=== PATIENT | male | born 2000 | race Caucasian/White ===

== ENCOUNTER 2023-06-19 13:11 | Inpatient (IN) | payer MEDICAID ==
[~2023-06-19] VITALS: Ht 182.9 cm; Wt 148.6 kg
[2023-06-19 16:45] LABS: BASOPHILS # (AUTO) 0.1 X10'3 (0-0.2); BASOPHILS % (AUTO) 0.4 % (0-1); EOSINOPHILS # (AUTO) 0.3 X10'3 (0-0.9); EOSINOPHILS % (AUTO) 2.7 % (0-6); HEMATOCRIT 44.4 % (42.0-52.0); HEMOGLOBIN 14.8 g/dl (14.0-17.9); LYMPHOCYTES # (AUTO) 2.3 X10'3 (1.1-4.8); LYMPHOCYTES % (AUTO) 18.4 % (21-51); MEAN CORPUSCULAR HEMOGLOBIN 28.4 PG (27.0-31.0); MEAN CORPUSCULAR HGB CONC 33.3 g/dL (33.0-36.5); MEAN CORPUSCULAR VOLUME 85.3 FL (78-98); MONOCYTES % (AUTO) 7.8 % (2-12); NEUTROPHILS % (AUTO) 70.7 % (42-75); PLATELET COUNT 364 X10'3 (140-440); RED CELL DISTRIBUTION WIDTH 13.1 % (11.5-14.5); WHITE BLOOD COUNT 12.8 X10'3 (4.5-11.0)
[2023-06-19 16:58] LABS: ALANINE AMINOTRANSFERASE 90 U/L (12-78); ALBUMIN 3.9 G/DL (3.4-5.0); ALBUMIN/GLOBULIN RATIO 0.9 (1.1-1.5); ALKALINE PHOSPHATASE 65 IU/L (46-116); ANION GAP 8 (8-16); ASPARTATE AMINO TRANSFERASE 34 U/L (10-37); BILIRUBIN,TOTAL 0.6 MG/DL (0.1-1.0); BLOOD UREA NITROGEN 9 MG/DL (7-18); BUN/CREATININE RATIO 8.7 (10.0-20.0); CHLORIDE 101 MMOL/L (99-107); CREATININE 1.04 MG/DL (0.60-1.10); GLUCOSE 90 MG/DL (70-104); LIPASE < 50 U/L (73-393); POTASSIUM 3.8 MMOL/L (3.5-5.1); SODIUM 137 MMOL/L (135-145); TOTAL CARBON DIOXIDE 27.9 MMOL/L (24-32); TOTAL PROTEIN 8.3 G/DL (6.4-8.2); eCRCL 123 ML/MIN; eGFR 90 ML/MIN
[2023-06-19 17:03] LABS: CALCIUM 10.1 MG/DL (8.5-10.1)
[2023-06-19] MEDS ORDERED: iohexol 300mg/ml 100ml inj. ONE (17:21)
[2023-06-19] MEDS ORDERED: normal saline 1000ML IV soln IV ONE (19:25)
[2023-06-19] MEDS ORDERED: piperacillin/tazo 3.375gm/50ml 50 ML IV ONE (19:25)
[2023-06-19] MEDS ORDERED: temazepam 15mg capsule PO PRN (21:00)
[2023-06-19] MEDS ORDERED: bisacodyl 10mg suppository rectal RC PRN (22:20)
[2023-06-19] MEDS ORDERED: acetaminophen 650mg rectal suppository RC PRN (22:20)
[2023-06-19] MEDS ORDERED: morphine 2 MG/ML inj. syringe IV PRN ×2 (22:20)
[2023-06-19] MEDS ORDERED: diphenhydrAMINE 50 mg/ml inj IV PRN (22:20)
[2023-06-19] MEDS ORDERED: metoclopramide 5 mg/ml inj IV PRN (22:20)
[2023-06-19] MEDS ORDERED: ondansetron 4mg rapidly disintigrating tab PO PRN (22:20)
[2023-06-19] MEDS ORDERED: acetaminophen 325mg tablet PO PRN ×2 (22:20)
[2023-06-19] MEDS ORDERED: magnesium hydroxide 30ml (MOM) UD suspension PO PRN (22:20)
[2023-06-19] MEDS ORDERED: HYDROcodone/acetaminophen 5mg/325mg tablet PO PRN (22:20)
[2023-06-19] MEDS ORDERED: diphenhydrAMINE 25mg capsule PO PRN (22:20)
[2023-06-19] MEDS ORDERED: mag hydrox/Alum hydrox/simeth 30ml oral suspension PO PRN (22:20)
[2023-06-19 23:20] VITALS: BP 137/80; PULSE 93; RESP 15; TEMP 99.7; O2SAT 96
[2023-06-19 23:41] LABS: HEMOGLOBIN A1C 5.7 % (4.5-6.2)
[2023-06-19 23:48] LABS: CREATINE KINASE 151 U/L (39-308); LIPASE 56 U/L (73-393); MAGNESIUM 1.8 MG/DL (1.5-2.4); PHOSPHORUS 3.9 MG/DL (2.3-4.5); PRO BRAIN NATRIURETIC PEPTIDE 38 PG/ML (0-125)
[2023-06-20] MEDS: piperacillin/tazo 4.5gm/100ml 100 ML IV SCH ×3 (00:27→16:27)
[2023-06-20 00:33] LABS: BILIRUBIN,URINE NEGATIVE (Neg); CLARITY,URINE CLEAR (Clear); COLOR,URINE YELLOW (Yellow); GLUCOSE, URINE NEGATIVE (Neg); KETONES,URINE NEGATIVE (Neg); LEUKOCYTE ESTERASE ,URINE NEGATIVE (Neg); NITRITES, URINE NEGATIVE (Neg); OCCULT BLOOD,URINE NEGATIVE (Neg); PH,URINE 5.5 (4.8-8.0); PROTEIN,URINE NEGATIVE (Neg); UROBILINOGEN,URINE 0.2 E.U/dL (0.2-1.0)
[2023-06-20] MEDS: normal saline 1000ml 1,000 ML IV SCH ×4 (00:34→16:31)
[2023-06-20] MEDS: heparin, porcine 5000 units/ml vial SQ SCH ×3 (00:35→16:27)
[2023-06-20 00:44] LABS: UA COLLECTION TYPE URINAL
[2023-06-20 00:50] LABS: URINE AMPHETAMINE SCREEN NEGATIVE (Neg); URINE BARBITUATE SCREEN NEGATIVE (Neg); URINE BENZODIAZEPINES SCREEN NEGATIVE (Neg); URINE CANNABINOID SCREEN NEGATIVE (Neg); URINE COCAINE SCREEN NEGATIVE (Neg); URINE METHADONE SCREEN NEGATIVE (Neg); URINE OPIATE SCREEN NEGATIVE (Neg); URINE PHENCYCLIDINE SCREEN NEGATIVE (Neg)
[2023-06-20 00:51] LABS: DRUG INTERP N
[2023-06-20 02:44] VITALS: BP 153/91; PULSE 85; RESP 16; TEMP 98.2; O2SAT 97
--- NOTE | 2023-06-20 06:31 | NUR ---
Problems reprioritized. Patient report given, questions answered & plan of care reviewed with JEAN-PAUL KHANNA.
--- NOTE | 2023-06-20 06:45 | NUR ---
Patient in room PCU 3018A. I have received report from JEY MOORE and had the opportunity to ask questions and assume patient care.
[2023-06-20 06:52] LABS: BASOPHILS % (AUTO) 0.3 % (0-1); EOSINOPHILS # (AUTO) 0.3 X10'3 (0-0.9); EOSINOPHILS % (AUTO) 2.3 % (0-6); HEMOGLOBIN 13.1 g/dl (14.0-17.9); MEAN CORPUSCULAR HEMOGLOBIN 28.6 PG (27.0-31.0); MEAN CORPUSCULAR HGB CONC 33.7 g/dL (33.0-36.5); MEAN CORPUSCULAR VOLUME 84.9 FL (78-98); MEAN PLATELET VOLUME 7.9 FL (7.4-10.4); MONOCYTES % (AUTO) 8.6 % (2-12); NEUTROPHILS # (AUTO) 8.6 X10'3 (1.8-7.7); NEUTROPHILS % (AUTO) 71.8 % (42-75); PLATELET COUNT 327 X10'3 (140-440); RED BLOOD COUNT 4.59 X10'6 (4.70-6.10); RED CELL DISTRIBUTION WIDTH 13.2 % (11.5-14.5); WHITE BLOOD COUNT 11.9 X10'3 (4.5-11.0)
[2023-06-20 07:00] VITALS: BP 124/78; PULSE 88; RESP 16; TEMP 99.1; O2SAT 97
[2023-06-20 07:14] LABS: ALANINE AMINOTRANSFERASE 72 U/L (12-78); ALBUMIN 3.3 G/DL (3.4-5.0); ALBUMIN/GLOBULIN RATIO 0.9 (1.1-1.5); ALKALINE PHOSPHATASE 58 IU/L (46-116); ANION GAP 10 (8-16); ASPARTATE AMINO TRANSFERASE 26 U/L (10-37); BILIRUBIN,TOTAL 0.7 MG/DL (0.1-1.0); BLOOD UREA NITROGEN 9 MG/DL (7-18); BUN/CREATININE RATIO 8.4 (10.0-20.0); CALCIUM 8.8 MG/DL (8.5-10.1); CHLORIDE 104 MMOL/L (99-107); CHOLESTEROL 167 MG/DL (0-200); CREATININE 1.07 MG/DL (0.60-1.10); GLUCOSE 93 MG/DL (70-104); HDL CHOLESTEROL 24 MG/DL (35-60); LDL CHOLESTEROL 117 MG/DL (50-100); POTASSIUM 3.7 MMOL/L (3.5-5.1); SODIUM 138 MMOL/L (135-145); TRIGLYCERIDES 125 MG/DL (20-135); eCRCL 120 ML/MIN; eGFR 87 ML/MIN
[2023-06-20] MEDS: pantoprazole 40mg Tablet.DR PO SCH (09:33)
[2023-06-20] MEDS: docusate sod 100mg capsule PO SCH ×2 (09:33→19:56)
[2023-06-20 10:00] VITALS: BP 129/86; PULSE 92; RESP 13; TEMP 99.2; O2SAT 95
[2023-06-20 15:00] VITALS: BP 128/76; PULSE 89; RESP 13; TEMP 97; O2SAT 95
[2023-06-20 18:00] VITALS: BP 139/84; PULSE 99; RESP 16; TEMP 99.6; O2SAT 96
--- NOTE | 2023-06-20 18:30 | NUR ---
Problems reprioritized. Patient report given, questions answered & plan of care reviewed with JEY PARSONS.
--- NOTE | 2023-06-20 18:34 | NUR ---
Patient in room PCU 3018. I have received report from Rosa Maria KHANNA and had the opportunity to ask questions and assume patient care.
[2023-06-20] MEDS: HYDROcodone/acetaminophen 10/325mg tab PO PRN (19:57)
[2023-06-21] MEDS: normal saline 1000ml 1,000 ML IV SCH ×4 (00:28→21:24)
[2023-06-21] MEDS: piperacillin/tazo 4.5gm/100ml 100 ML IV SCH ×3 (00:30→16:26)
[2023-06-21] MEDS: heparin, porcine 5000 units/ml vial SQ SCH ×3 (00:33→17:39)
[2023-06-21 02:26] VITALS: BP 142/87; PULSE 102; RESP 16; TEMP 98; O2SAT 95
--- NOTE | 2023-06-21 06:25 | NUR ---
patient medicated x1 for pain. slept well overnight. report given to Rosa Maria KHANNA
--- NOTE | 2023-06-21 06:27 | NUR ---
Patient in room PCU 3018A. I have received report from JEY PARSONS and had the opportunity to ask questions and assume patient care.
[2023-06-21 06:37] LABS: BASOPHILS % (AUTO) 0.2 % (0-1); EOSINOPHILS # (AUTO) 0.3 X10'3 (0-0.9); EOSINOPHILS % (AUTO) 2.3 % (0-6); HEMATOCRIT 40.2 % (42.0-52.0); LYMPHOCYTES % (AUTO) 15.8 % (21-51); MEAN CORPUSCULAR HEMOGLOBIN 28.2 PG (27.0-31.0); MEAN CORPUSCULAR HGB CONC 32.4 g/dL (33.0-36.5); MEAN CORPUSCULAR VOLUME 87.2 FL (78-98); MEAN PLATELET VOLUME 7.6 FL (7.4-10.4); MONOCYTES # (AUTO) 1.1 X10'3 (0-0.9); MONOCYTES % (AUTO) 8.8 % (2-12); NEUTROPHILS # (AUTO) 9.2 X10'3 (1.8-7.7); NEUTROPHILS % (AUTO) 72.9 % (42-75); PLATELET COUNT 340 X10'3 (140-440); RED BLOOD COUNT 4.61 X10'6 (4.70-6.10); RED CELL DISTRIBUTION WIDTH 13.4 % (11.5-14.5); WHITE BLOOD COUNT 12.6 X10'3 (4.5-11.0)
[2023-06-21 07:00] VITALS: BP 139/88; PULSE 89; RESP 18; TEMP 98.5; O2SAT 95
[2023-06-21 07:02] LABS: ALANINE AMINOTRANSFERASE 54 U/L (12-78); ALBUMIN 3.1 G/DL (3.4-5.0); ALBUMIN/GLOBULIN RATIO 0.8 (1.1-1.5); ALKALINE PHOSPHATASE 50 IU/L (46-116); ANION GAP 10 (8-16); ASPARTATE AMINO TRANSFERASE 21 U/L (10-37); BILIRUBIN,TOTAL 0.7 MG/DL (0.1-1.0); BLOOD UREA NITROGEN 4 MG/DL (7-18); BUN/CREATININE RATIO 3.7 (10.0-20.0); CALCIUM 8.9 MG/DL (8.5-10.1); CHLORIDE 107 MMOL/L (99-107); CREATININE 1.08 MG/DL (0.60-1.10); GLUCOSE 97 MG/DL (70-104); POTASSIUM 3.7 MMOL/L (3.5-5.1); SODIUM 141 MMOL/L (135-145); TOTAL CARBON DIOXIDE 24.2 MMOL/L (24-32); eCRCL 119 ML/MIN; eGFR 86 ML/MIN
[2023-06-21] MEDS: pantoprazole 40mg Tablet.DR PO SCH (08:01)
[2023-06-21] MEDS: docusate sod 100mg capsule PO SCH ×2 (08:07→20:46)
[2023-06-21] MEDS: HYDROcodone/acetaminophen 10/325mg tab PO PRN (10:19)
[2023-06-21 11:00] VITALS: BP 156/91; PULSE 97; RESP 16; TEMP 99.5; O2SAT 97
[2023-06-21] MEDS ORDERED: FLO0.4C PO (13:33)
[2023-06-21] MEDS ORDERED: MAGN296S89 PO (13:35)
[2023-06-21 15:00] VITALS: BP 135/90; PULSE 119; RESP 18; TEMP 101.7; O2SAT 95
[2023-06-21 18:00] VITALS: BP 148/80; PULSE 113; RESP 16; TEMP 99; O2SAT 95
--- NOTE | 2023-06-21 18:39 | NUR ---
Problems reprioritized. Patient report given, questions answered & plan of care reviewed with JOE MATAMOROS.
[2023-06-21 20:00] VITALS: RESP 16; O2SAT 95
[2023-06-21] MEDS: diatr meglu/diatrizoate 30ml oral sol.-(3 dose) bottle PO SCH (20:46)
[2023-06-22] VITALS (7 sets, daily range): BP systolic 107–154; BP diastolic 59–85; PULSE 86–100; RESP 16–19; TEMP 97.7–99.9; O2SAT 95–98
[2023-06-22] MEDS: heparin, porcine 5000 units/ml vial SQ SCH ×3 (00:12→16:19)
[2023-06-22] MEDS: piperacillin/tazo 4.5gm/100ml 100 ML IV SCH ×3 (02:31→16:19)
--- NOTE | 2023-06-22 06:16 | NUR ---
Patient in room PCU 3018B. I have received report from JOE MATAMOROS and had the opportunity to ask questions and assume patient care. Addendum: 06/22/23 at 0617 by Rosa Maria Ko RN A BED NOT B BED
[2023-06-22] MEDS: normal saline 1000ml 1,000 ML IV SCH ×4 (06:24→23:40)
[2023-06-22] MEDS: diatr meglu/diatrizoate 30ml oral sol.-(3 dose) bottle PO SCH ×2 (07:25→10:23)
[2023-06-22] MEDS: tamsulosin 0.4mg capsule PO SCH (07:26)
[2023-06-22] MEDS: pantoprazole 40mg Tablet.DR PO SCH (07:26)
[2023-06-22] MEDS: docusate sod 100mg capsule PO SCH ×2 (07:29→19:31)
[2023-06-22 07:32] LABS: BASOPHILS # (AUTO) 0.1 X10'3 (0-0.2); BASOPHILS % (AUTO) 0.4 % (0-1); EOSINOPHILS # (AUTO) 0.2 X10'3 (0-0.9); EOSINOPHILS % (AUTO) 1.7 % (0-6); HEMATOCRIT 38.3 % (42.0-52.0); HEMOGLOBIN 12.8 g/dl (14.0-17.9); LYMPHOCYTES # (AUTO) 2.3 X10'3 (1.1-4.8); LYMPHOCYTES % (AUTO) 17.2 % (21-51); MEAN CORPUSCULAR HEMOGLOBIN 28.3 PG (27.0-31.0); MEAN CORPUSCULAR HGB CONC 33.3 g/dL (33.0-36.5); MEAN CORPUSCULAR VOLUME 84.9 FL (78-98); MEAN PLATELET VOLUME 7.9 FL (7.4-10.4); MONOCYTES # (AUTO) 1.1 X10'3 (0-0.9); MONOCYTES % (AUTO) 8.4 % (2-12); NEUTROPHILS # (AUTO) 9.6 X10'3 (1.8-7.7); NEUTROPHILS % (AUTO) 72.3 % (42-75); PLATELET COUNT 359 X10'3 (140-440); RED BLOOD COUNT 4.52 X10'6 (4.70-6.10); WHITE BLOOD COUNT 13.3 X10'3 (4.5-11.0)
[2023-06-22 07:56] LABS: ALANINE AMINOTRANSFERASE 53 U/L (12-78); ALBUMIN 3.1 G/DL (3.4-5.0); ALBUMIN/GLOBULIN RATIO 0.8 (1.1-1.5); ALKALINE PHOSPHATASE 58 IU/L (46-116); ANION GAP 9 (8-16); ASPARTATE AMINO TRANSFERASE 19 U/L (10-37); BILIRUBIN,TOTAL 0.8 MG/DL (0.1-1.0); BLOOD UREA NITROGEN 4 MG/DL (7-18); BUN/CREATININE RATIO 3.3 (10.0-20.0); CHLORIDE 105 MMOL/L (99-107); CREATININE 1.21 MG/DL (0.60-1.10); GLUCOSE 95 MG/DL (70-104); POTASSIUM 3.5 MMOL/L (3.5-5.1); SODIUM 139 MMOL/L (135-145); TOTAL CARBON DIOXIDE 25.3 MMOL/L (24-32); eCRCL 106 ML/MIN; eGFR 76 ML/MIN
[2023-06-22] MEDS ORDERED: iohexol 300mg/ml 100ml inj. ONE (09:52)
[2023-06-22] MEDS: ondansetron/PF 4mg/2ml inj IV PRN (12:06)
--- NOTE | 2023-06-22 18:27 | NUR ---
Patient in room PCU 3018. I have received report from JEY Crane and had the opportunity to ask questions and assume patient care.
--- NOTE | 2023-06-22 19:04 | NUR ---
Problems reprioritized. Patient report given, questions answered & plan of care reviewed with JEY GARCIA.
[2023-06-23] VITALS (23 sets, daily range): BP systolic 122–165; BP diastolic 66–100; PULSE 65–110; RESP 13–20; TEMP 98.2–99.8; O2SAT 93–99
[2023-06-23] MEDS: piperacillin/tazo 4.5gm/100ml 100 ML IV SCH ×3 (00:13→15:44)
[2023-06-23] MEDS: normal saline 1000ml 1,000 ML IV SCH ×3 (01:39→21:13)
--- NOTE | 2023-06-23 06:30 | NUR ---
Patient in room PCU 3018. I have received report from Abigail KHANNA and had the opportunity to ask questions and assume patient care.
--- NOTE | 2023-06-23 06:46 | NUR ---
Problems reprioritized. Patient report given, questions answered & plan of care reviewed with JOE Garcia.
[2023-06-23 07:44] LABS: BASOPHILS % (AUTO) 0.4 % (0-1); EOSINOPHILS # (AUTO) 0.3 X10'3 (0-0.9); EOSINOPHILS % (AUTO) 2.2 % (0-6); HEMATOCRIT 39.5 % (42.0-52.0); LYMPHOCYTES % (AUTO) 15.2 % (21-51); MEAN CORPUSCULAR HGB CONC 32.8 g/dL (33.0-36.5); MEAN CORPUSCULAR VOLUME 85.3 FL (78-98); MEAN PLATELET VOLUME 7.9 FL (7.4-10.4); MONOCYTES # (AUTO) 1.1 X10'3 (0-0.9); MONOCYTES % (AUTO) 8.5 % (2-12); NEUTROPHILS # (AUTO) 9.5 X10'3 (1.8-7.7); NEUTROPHILS % (AUTO) 73.7 % (42-75); PLATELET COUNT 393 X10'3 (140-440); RED BLOOD COUNT 4.63 X10'6 (4.70-6.10); RED CELL DISTRIBUTION WIDTH 13.1 % (11.5-14.5); WHITE BLOOD COUNT 12.9 X10'3 (4.5-11.0)
[2023-06-23] MEDS: heparin, porcine 5000 units/ml vial SQ SCH ×2 (08:00)
[2023-06-23] MEDS: docusate sod 100mg capsule PO SCH ×2 (08:00→20:00)
[2023-06-23 08:13] LABS: ALANINE AMINOTRANSFERASE 47 U/L (12-78); ALBUMIN 3.2 G/DL (3.4-5.0); ALBUMIN/GLOBULIN RATIO 0.8 (1.1-1.5); ALKALINE PHOSPHATASE 57 IU/L (46-116); ANION GAP 10 (8-16); ASPARTATE AMINO TRANSFERASE 16 U/L (10-37); BILIRUBIN,TOTAL 0.7 MG/DL (0.1-1.0); BLOOD UREA NITROGEN 7 MG/DL (7-18); BUN/CREATININE RATIO 6.5 (10.0-20.0); CALCIUM 9.4 MG/DL (8.5-10.1); CHLORIDE 104 MMOL/L (99-107); CREATININE 1.07 MG/DL (0.60-1.10); GLUCOSE 81 MG/DL (70-104); POTASSIUM 3.7 MMOL/L (3.5-5.1); SODIUM 139 MMOL/L (135-145); TOTAL PROTEIN 7.3 G/DL (6.4-8.2); eCRCL 120 ML/MIN; eGFR 87 ML/MIN
[2023-06-23] MEDS: tamsulosin 0.4mg capsule PO SCH (08:51)
[2023-06-23] MEDS: pantoprazole 40mg Tablet.DR PO SCH (08:51)
--- NOTE | 2023-06-23 10:50 | NUR ---
Paged PICC nurse for new IV.
--- NOTE | 2023-06-23 11:41 | NUR ---
Initial: Pt admit for sigmoid colitis with pericolonic contained perforation. Per physician progress note pt with sepsis secondary to colitis/phlegmon. Pt has been on a clear liquid diet and eating well, documented with 100% PO intake, though not meeting estimated nutrient needs given insufficient diet order. Clear liquid diet remains active however pt documented to be NPO since 06/22. Recommend advancing to low fiber diet as medically indicated. LBM 06/22 per EMR. Will continue to follow closely and make recommendations as appropriate. Recommendations: 1) Advance to low fiber diet as medically indicated 2) Monitor need for ONS/additional protein with diet advancement 3) Bowel care per physician 4) Scaled weight this admit; subsequent weekly scaled weights Addendum: 06/23/23 at [address] Amended: Links added.
[2023-06-23] MEDS ORDERED: glucagon, human recombinant 1mg kit ONE (12:03)
--- NOTE | 2023-06-23 12:20 | NUR ---
Patient left unit via bed to angio for drain placement
[2023-06-23] MEDS ORDERED: fentaNYL/PF 50MCG/1 ML 2ML syringe ONE (12:29)
[2023-06-23] MEDS ORDERED: midazolam 1 mg/ML 2ml injection ONE (12:29)
--- NOTE | 2023-06-23 13:50 | NUR ---
Patient returned to unit from Angio complaint of 3/10 pain in abd.
--- NOTE | 2023-06-23 14:09 | NUR ---
PAGER ID: [phone] MESSAGE: [phone] A Chawla Patient is back from procedure is he able to have clear liquids now? Thank you Radha DIAZ [phone]
--- NOTE | 2023-06-23 14:14 | NUR ---
Spoke with Dr Hartman about clear liquid diet and heparin order. Gave order to DC heparin and put patient back onto clear liquid diet.
[2023-06-23] MEDS: HYDROcodone/acetaminophen 10/325mg tab PO PRN ×2 (14:25→21:01)
[2023-06-23] MEDS: ondansetron/PF 4mg/2ml inj IV PRN (16:47)
--- NOTE | 2023-06-23 18:20 | NUR ---
Problems reprioritized. Patient report given, questions answered & plan of care reviewed with Neena RN.
--- NOTE | 2023-06-23 18:30 | NUR ---
Patient in room PCU 3018. I have received report from GASPER DIAZ and had the opportunity to ask questions and assume patient care.
[2023-06-24] VITALS (8 sets, daily range): BP systolic 145–154; BP diastolic 67–86; PULSE 98–107; RESP 16–20; TEMP 98.1–100.5; O2SAT 92–99
[2023-06-24] MEDS: piperacillin/tazo 4.5gm/100ml 100 ML IV SCH ×3 (00:47→16:09)
[2023-06-24] MEDS: normal saline 1000ml 1,000 ML IV SCH ×3 (00:53→18:09)
[2023-06-24] MEDS: HYDROcodone/acetaminophen 10/325mg tab PO PRN ×2 (04:55→12:38)
[2023-06-24 06:16] LABS: BASOPHILS % (AUTO) 0.2 % (0-1); EOSINOPHILS # (AUTO) 0.1 X10'3 (0-0.9); HEMATOCRIT 38.2 % (42.0-52.0); HEMOGLOBIN 12.9 g/dl (14.0-17.9); LYMPHOCYTES # (AUTO) 2.1 X10'3 (1.1-4.8); LYMPHOCYTES % (AUTO) 16.6 % (21-51); MEAN CORPUSCULAR HEMOGLOBIN 28.5 PG (27.0-31.0); MEAN CORPUSCULAR HGB CONC 33.7 g/dL (33.0-36.5); MEAN CORPUSCULAR VOLUME 84.7 FL (78-98); MEAN PLATELET VOLUME 7.6 FL (7.4-10.4); MONOCYTES # (AUTO) 1.2 X10'3 (0-0.9); MONOCYTES % (AUTO) 9.2 % (2-12); NEUTROPHILS # (AUTO) 9.1 X10'3 (1.8-7.7); PLATELET COUNT 367 X10'3 (140-440); RED BLOOD COUNT 4.51 X10'6 (4.70-6.10); RED CELL DISTRIBUTION WIDTH 13.2 % (11.5-14.5); WHITE BLOOD COUNT 12.5 X10'3 (4.5-11.0)
--- NOTE | 2023-06-24 06:23 | NUR ---
Problems reprioritized. Patient report given, questions answered & plan of care reviewed with SHABNAM KHANNA.
[2023-06-24 06:26] LABS: ALANINE AMINOTRANSFERASE 42 U/L (12-78); ALBUMIN 2.9 G/DL (3.4-5.0); ALBUMIN/GLOBULIN RATIO 0.7 (1.1-1.5); ALKALINE PHOSPHATASE 57 IU/L (46-116); ANION GAP 14 (8-16); ASPARTATE AMINO TRANSFERASE 17 U/L (10-37); BILIRUBIN,TOTAL 0.9 MG/DL (0.1-1.0); BLOOD UREA NITROGEN 7 MG/DL (7-18); BUN/CREATININE RATIO 7.1 (10.0-20.0); CALCIUM 8.9 MG/DL (8.5-10.1); CHLORIDE 102 MMOL/L (99-107); CREATININE 0.99 MG/DL (0.60-1.10); GLUCOSE 86 MG/DL (70-104); POTASSIUM 3.7 MMOL/L (3.5-5.1); SODIUM 135 MMOL/L (135-145); TOTAL CARBON DIOXIDE 19.4 MMOL/L (24-32); TOTAL PROTEIN 7.1 G/DL (6.4-8.2); eCRCL 130 ML/MIN; eGFR > 90 ML/MIN
--- NOTE | 2023-06-24 06:53 | NUR ---
Patient in room PCU 3018. I have received report from Olivia Baker RN and had the opportunity to ask questions and assume patient care.
[2023-06-24] MEDS: docusate sod 100mg capsule PO SCH ×2 (08:00→20:47)
[2023-06-24] MEDS: pantoprazole 40mg Tablet.DR PO SCH (08:05)
[2023-06-24] MEDS: tamsulosin 0.4mg capsule PO SCH (08:05)
[2023-06-24 13:28] LABS: BILIRUBIN,URINE NEGATIVE (Neg); CLARITY,URINE CLEAR (Clear); COLOR,URINE YELLOW (Yellow); GLUCOSE, URINE NEGATIVE (Neg); KETONES,URINE 40 mg/dl (Neg); LEUKOCYTE ESTERASE ,URINE NEGATIVE (Neg); OCCULT BLOOD,URINE TRACE-INTACT (Neg); PROTEIN,URINE NEGATIVE (Neg); UROBILINOGEN,URINE 0.2 E.U/dL (0.2-1.0)
[2023-06-24 13:31] LABS: UA COLLECTION TYPE CLN CATCH MIDSTREAM
[2023-06-24 13:32] LABS: NITRITES, URINE NEGATIVE (Neg)
[2023-06-24 13:35] LABS: BACTERIA,URINE NONE SEEN /HPF (Neg); MUCUS STRANDS NONE SEEN /LPF (Neg); RBC,URINE NONE SEEN /HPF (0-2); SQUAMOUS EPITHELIAL CELL,UR FEW /LPF (FEW); WBC,URINE 0-4 /HPF (0-4)
--- NOTE | 2023-06-24 18:28 | NUR ---
Patient in room PCU 3018. I have received report from SHABNAM KHANNA and had the opportunity to ask questions and assume patient care.
[2023-06-25] VITALS (7 sets, daily range): BP systolic 135–155; BP diastolic 71–88; PULSE 92–101; RESP 16–21; TEMP 97.4–99.8; O2SAT 93–97
[2023-06-25] MEDS: HYDROcodone/acetaminophen 10/325mg tab PO PRN ×2 (00:05→12:20)
[2023-06-25] MEDS: piperacillin/tazo 4.5gm/100ml 100 ML IV SCH ×3 (00:06→16:04)
[2023-06-25] MEDS: normal saline 1000ml 1,000 ML IV SCH ×2 (03:51→13:20)
--- NOTE | 2023-06-25 06:20 | NUR ---
Problems reprioritized. Patient report given, questions answered & plan of care reviewed with SHABNAM KHANNA.
--- NOTE | 2023-06-25 06:57 | NUR ---
Patient in room PCU 3018. I have received report from Shiela KHANNA and had the opportunity to ask questions and assume patient care.
[2023-06-25] MEDS: pantoprazole 40mg Tablet.DR PO SCH (08:32)
[2023-06-25] MEDS: tamsulosin 0.4mg capsule PO SCH (08:32)
[2023-06-25] MEDS: docusate sod 100mg capsule PO SCH ×2 (08:32→19:55)
--- NOTE | 2023-06-25 18:48 | NUR ---
Patient in room PCU 3018. I have received report from SHABNAM KHANNA and had the opportunity to ask questions and assume patient care.
--- NOTE | 2023-06-25 19:18 | NUR ---
Problems reprioritized. Patient report given, questions answered & plan of care reviewed with Prudence RN.
[2023-06-26] VITALS (9 sets, daily range): BP systolic 131–155; BP diastolic 80–90; PULSE 76–95; RESP 16–20; TEMP 97.3–99.3; O2SAT 93–97
[2023-06-26] MEDS: normal saline 1000ml 1,000 ML IV SCH ×3 (00:21→20:44)
[2023-06-26] MEDS: piperacillin/tazo 4.5gm/100ml 100 ML IV SCH ×4 (00:21→23:39)
--- NOTE | 2023-06-26 06:39 | NUR ---
Problems reprioritized. Patient report given, questions answered & plan of care reviewed with SHABNAM KHANNA.
[2023-06-26] MEDS: docusate sod 100mg capsule PO SCH ×2 (08:00→20:43)
[2023-06-26] MEDS: pantoprazole 40mg Tablet.DR PO SCH (09:02)
[2023-06-26] MEDS: tamsulosin 0.4mg capsule PO SCH (09:02)
--- NOTE | 2023-06-26 14:42 | NUR ---
Reassessment: Diet advanced to full liquids 06/24 and pt eating well, documented with average 89% PO intake of meals however only meeting 60% estimated energy needs and 27% estimated protein needs d/t insufficient diet order. Per RN pt with several food requests. Pt seen at bedside, reports having prediabetes (current A1c 5.7%) so he wants to watch his sugar intake and also reports disliking some food d/t it tasting too sweet. Food preferences were obtained and d/w dietary, see below. Pt agrees to an Ensure Enlive to optimize nutrient intake given insufficient diet order. ONS to be sent pending physician approval in EMR. LBM 06/26 per EMR. Pt provided with RD contact information and encouraged to reach out if needed. Will continue to follow closely. Recommendations: 1) Advance to low fiber diet as medically indicated 2) Ensure Enlive TID, pending physician approval in EMR 3) Guild food preferences: chicken or beef broth only, diet/sugar free options when available (ice cream okay); no vegetable broth or pureed/cream based soups, no coffee-pt prefers tea 4) Bowel care per physician 5) Scaled weight this admit; subsequent weekly scaled weights Addendum: 06/26/23 at [address] Amended: Links added.
[2023-06-26] MEDS: lactose-reduced food (Ensure Enlive) - 237ml bottle PO SCH (18:00)
--- NOTE | 2023-06-26 18:30 | NUR ---
Patient in room PCU 3018. I have received report from SHABNAM KHANNA and had the opportunity to ask questions and assume patient care.
--- NOTE | 2023-06-26 18:32 | NUR ---
Problems reprioritized. Patient report given, questions answered & plan of care reviewed with Prudence RN.
[2023-06-27 02:00] VITALS: BP 124/73; PULSE 68; RESP 24; TEMP 96.5; O2SAT 94
[2023-06-27] MEDS: normal saline 1000ml 1,000 ML IV SCH ×2 (04:31→16:37)
[2023-06-27 07:00] VITALS: BP 159/96; PULSE 80; RESP 15; TEMP 98.1; O2SAT 95
[2023-06-27] MEDS: lactose-reduced food (Ensure Enlive) - 237ml bottle PO SCH (08:00)
[2023-06-27] MEDS: tamsulosin 0.4mg capsule PO SCH (08:29)
[2023-06-27] MEDS: pantoprazole 40mg Tablet.DR PO SCH (08:29)
[2023-06-27] MEDS: docusate sod 100mg capsule PO SCH ×2 (08:29→20:00)
[2023-06-27] MEDS: piperacillin/tazo 4.5gm/100ml 100 ML IV SCH ×2 (08:30→16:37)
--- NOTE | 2023-06-27 18:10 | NUR ---
Report given to Liam KHANNA, all questions answered. Pt has dinner tray and is getting frustrated with full liquid options.
[2023-06-27 18:30] VITALS: BP 147/80; PULSE 78; RESP 17; TEMP 97.7; O2SAT 98
[2023-06-27 22:00] VITALS: BP 136/70; PULSE 68; RESP 15; TEMP 97.6; O2SAT 97
[2023-06-28] MEDS: piperacillin/tazo 4.5gm/100ml 100 ML IV SCH ×2 (00:21→07:25)
[2023-06-28 02:00] VITALS: BP 140/84; PULSE 72; RESP 18; TEMP 98.5; O2SAT 96
--- NOTE | 2023-06-28 06:45 | NUR ---
Problems reprioritized. Patient report given, questions answered & plan of care reviewed with Javier. Addendum: 06/28/23 at 0646 by Matthias Montoya RN Amended: Links added.
--- NOTE | 2023-06-28 06:50 | NUR ---
Patient in room U 3018. I have received report from Liam and had the opportunity to ask questions and assume patient care. Addendum: 06/28/23 at 0650 by Javier Denny RN Amended: Links added.
[2023-06-28 06:59] LABS: ALBUMIN 3.2 G/DL (3.4-5.0); ANION GAP 12 (8-16); BLOOD UREA NITROGEN 5 MG/DL (7-18); BUN/CREATININE RATIO 4.8 (10.0-20.0); CHLORIDE 105 MMOL/L (99-107); CREATININE 1.04 MG/DL (0.60-1.10); GLUCOSE 104 MG/DL (70-104); POTASSIUM 3.8 MMOL/L (3.5-5.1); SODIUM 143 MMOL/L (135-145); TOTAL CARBON DIOXIDE 26.1 MMOL/L (24-32); eCRCL 123 ML/MIN; eGFR 90 ML/MIN
[2023-06-28 07:02] LABS: BASOPHILS # (AUTO) 0.1 X10'3 (0-0.2); BASOPHILS % (AUTO) 0.6 % (0-1); EOSINOPHILS # (AUTO) 0.4 X10'3 (0-0.9); EOSINOPHILS % (AUTO) 4.7 % (0-6); HEMATOCRIT 43.6 % (42.0-52.0); HEMOGLOBIN 14.6 g/dl (14.0-17.9); LYMPHOCYTES # (AUTO) 2.1 X10'3 (1.1-4.8); LYMPHOCYTES % (AUTO) 26.5 % (21-51); MEAN CORPUSCULAR HEMOGLOBIN 28.5 PG (27.0-31.0); MEAN CORPUSCULAR HGB CONC 33.4 g/dL (33.0-36.5); MEAN CORPUSCULAR VOLUME 85.3 FL (78-98); MONOCYTES # (AUTO) 0.5 X10'3 (0-0.9); NEUTROPHILS # (AUTO) 4.8 X10'3 (1.8-7.7); NEUTROPHILS % (AUTO) 61.2 % (42-75); PLATELET COUNT 533 X10'3 (140-440); RED BLOOD COUNT 5.11 X10'6 (4.70-6.10); RED CELL DISTRIBUTION WIDTH 13.6 % (11.5-14.5); WHITE BLOOD COUNT 7.8 X10'3 (4.5-11.0)
[2023-06-28 07:16] VITALS: BP 145/88; PULSE 79; RESP 15; TEMP 98.3; O2SAT 94
[2023-06-28] MEDS: docusate sod 100mg capsule PO SCH (07:26)
[2023-06-28] MEDS: pantoprazole 40mg Tablet.DR PO SCH (07:26)
[2023-06-28] MEDS: tamsulosin 0.4mg capsule PO SCH (07:26)
[2023-06-28 08:00] VITALS: RESP 15; O2SAT 94
[2023-06-28 11:27] VITALS: BP 151/96; PULSE 88; RESP 14; TEMP 97.8; O2SAT 95
[2023-06-28] MEDS ORDERED: METR-159 PO (12:20)
[2023-06-28] MEDS ORDERED: LEVO-65 PO (12:20)
[2023-06-28] MEDS ORDERED: METO-395 PO (12:23)
[2023-06-28 15:00] VITALS: BP 149/95; PULSE 80; RESP 16; TEMP 98.5; O2SAT 95
--- NOTE | 2023-06-28 17:26 | NUR ---
iv removed, paperwork reviewed, questions answered
== END 2023-06-28 17:25 | disposition home or self-care (01) | DRG 720 ==
LOC: ER 13:12 → ED HOLD 22:24 → EDBEDREQ 23:02 → PCU 3S 23:22
PROVIDERS: ADMIT Family Medicine; ATTEND Family Medicine
PROC: BW211ZZ Computerized Tomography (CT Scan) of Abdomen and Pelvis using Low Osmolar Contrast (ICD-10-PCS; 2023-06-19)
PROC: BW211ZZ Computerized Tomography (CT Scan) of Abdomen and Pelvis using Low Osmolar Contrast (ICD-10-PCS; 2023-06-22)
PROC: 0D9N30Z Drainage of Sigmoid Colon with Drainage Device, Percutaneous Approach (ICD-10-PCS; principal; 2023-06-23)
DX: A41.9 Sepsis, unspecified organism (principal); K57.20 Diverticulitis of large intestine with perforation and abscess without bleeding; E66.01 Morbid (severe) obesity due to excess calories; K52.89 Other specified noninfective gastroenteritis and colitis; Z68.41 Body mass index [BMI] 40.0-44.9, adult; Z88.8 Allergy status to other drugs, medicaments and biological substances
CPT/HCPCS: 36415; 49406; 71045; 74177; 80048; 80053; 80061; 80305; 81001; 81003; 82550; 83036; 83605; 83690; 83735; 83880; 84100; 84145; 84443; 85025; 87040; 87070; 87075; 87076; 87077; 87081; 87185; 87186; 99152; 99153; 99285; A4421; A4615; A6258; C1729; C1769; G0378; J1610; J1644; J2250; J2270; J2405; J2543; J3010; J3490; J7030; J7040; Q9963; Q9967

== ENCOUNTER 2024-09-16 18:42 | Emergency (ER) | payer MEDICAID ==
[~2024-09-16] VITALS: Ht 182.9 cm; Wt 147.7 kg
[~2024-09-16 18:42] MED LIST: FLO0.4C PO; METO-395 PO
[2024-09-16 18:44] VITALS: TEMP 98
[2024-09-16 20:06] LABS: BILIRUBIN,URINE NEGATIVE (Neg); CLARITY,URINE CLEAR (Clear); COLOR,URINE YELLOW (Yellow); GLUCOSE, URINE NEGATIVE (Neg); KETONES,URINE TRACE mg/dl (Neg); LEUKOCYTE ESTERASE ,URINE NEGATIVE (Neg); NITRITES, URINE NEGATIVE (Neg); OCCULT BLOOD,URINE NEGATIVE (Neg); PROTEIN,URINE NEGATIVE (Neg); UROBILINOGEN,URINE 0.2 E.U/dL (0.2-1.0)
[2024-09-16 20:14] LABS: UA COLLECTION TYPE NON-SPECIFIED
[2024-09-16 20:18] LABS: BASOPHILS # (AUTO) 0.1 X10'3 (0-0.2); BASOPHILS % (AUTO) 0.7 % (0-1); EOSINOPHILS # (AUTO) 0.2 X10'3 (0-0.9); EOSINOPHILS % (AUTO) 1.9 % (0-6); HEMATOCRIT 48.4 % (42.0-52.0); HEMOGLOBIN 16.7 g/dl (14.0-17.9); LYMPHOCYTES # (AUTO) 3.5 X10'3 (1.1-4.8); LYMPHOCYTES % (AUTO) 38.2 % (21-51); MEAN CORPUSCULAR HEMOGLOBIN 29.7 PG (27.0-31.0); MEAN CORPUSCULAR HGB CONC 34.5 g/dL (33.0-36.5); MEAN CORPUSCULAR VOLUME 86.2 FL (78-98); MEAN PLATELET VOLUME 8.1 FL (7.4-10.4); MONOCYTES # (AUTO) 0.5 X10'3 (0-0.9); MONOCYTES % (AUTO) 5.6 % (2-12); NEUTROPHILS # (AUTO) 4.9 X10'3 (1.8-7.7); NEUTROPHILS % (AUTO) 53.6 % (42-75); PLATELET COUNT 325 X10'3 (140-440); RED BLOOD COUNT 5.61 X10'6 (4.70-6.10); WHITE BLOOD COUNT 9.1 X10'3 (4.5-11.0)
[2024-09-16 20:25] LABS: ALANINE AMINOTRANSFERASE 84 U/L (12-78); ALBUMIN 4.8 G/DL (3.4-5.0); ALBUMIN/GLOBULIN RATIO 1.2 (1.1-1.5); ALKALINE PHOSPHATASE 61 IU/L (46-116); ANION GAP 9 (8-16); ASPARTATE AMINO TRANSFERASE 33 U/L (10-37); BILIRUBIN,TOTAL 0.8 MG/DL (0.1-1.0); BLOOD UREA NITROGEN 11 MG/DL (7-18); BUN/CREATININE RATIO 9.8 (10.0-20.0); CALCIUM 9.8 MG/DL (8.5-10.1); CHLORIDE 104 MMOL/L (99-107); CREATININE 1.12 MG/DL (0.60-1.10); GLUCOSE 82 MG/DL (70-104); LIPASE 27 U/L (16-77); POTASSIUM 3.8 MMOL/L (3.5-5.1); SODIUM 141 MMOL/L (135-145); TOTAL CARBON DIOXIDE 27.6 MMOL/L (24-32); TOTAL PROTEIN 8.8 G/DL (6.4-8.2); eCRCL 114 ML/MIN; eGFR 82 ML/MIN
[2024-09-16 20:48] VITALS: BP 132/102; PULSE 98; RESP 16; O2SAT 99
== END 2024-09-16 20:54 | disposition home or self-care (01) ==
LOC: ER 18:42
DX: R10.31 Right lower quadrant pain (principal); K59.00 Constipation, unspecified; R19.7 Diarrhea, unspecified; J45.909 Unspecified asthma, uncomplicated; Z79.899 Other long term (current) drug therapy; Z90.89 Acquired absence of other organs
CPT/HCPCS: 36415; 80053; 81003; 83690; 84145; 85025; 99283